=== PATIENT | male | born 1930 | race Caucasian/White ===

== ENCOUNTER 2018-11-25 00:31 | Inpatient (IN) | payer MEDICARE, OTHER ==
[2018-11-25] VITALS (74 sets, daily range): BP systolic 48–139; BP diastolic 27–89
[~2018-11-25] VITALS: Ht 172.7 cm; Wt 76.2 kg
[~2018-11-25 00:31] MED LIST: ASPI-605 PO
--- NOTE | 2018-11-25 00:40 | NUR ---
ABG DONE IMMEDIATELY.
--- NOTE | 2018-11-25 00:45 | NUR ---
pt bibra, for fever, sob, 88% on r/a rr 30 temp 102, placed on er bed 7, immediately started on cpap setting as ordered, seen and eval done by er dr Mccray, orders and tx carried out.
[2018-11-25] MEDS ORDERED: ALBUTEROL FS 2.5 MG/3 ML VIAL.NEB ONE (00:49)
[2018-11-25] MEDS ORDERED: IBUPROFEN 600 MG TABLET PO ONE ×2 (00:52→01:00)
[2018-11-25] MEDS ORDERED: CEFTRIAXONE 1 G VIAL ONE (00:55)
[2018-11-25] MEDS ORDERED: CEFTRIAXONE 1 G in IV D5W 50 ML IV ONE (01:00)
[2018-11-25] MEDS ORDERED: IV NS 0.9% 1,000 ML BAG IV ONE (01:00)
[2018-11-25 01:02] LABS: HEMATOCRIT 37 % (39-51); HEMOGLOBIN 12.3 g/dL (13.5-17.5); LYMPHOCYTES # (AUTO) 0.2 /CMM (0.8-4.8); MEAN CORPUSCULAR HGB CONC 34 g/dl (31.0-36.0); MEAN CORPUSCULAR VOLUME 105 fL (80-96); MONOCYTES # (AUTO) 0.1 /CMM (0.1-1.30); MONOCYTES % (AUTO) 0.8 % (2.0-12.0); NEUTROPHILS # (AUTO) 16.8 /CMM (1.8-8.9); NEUTROPHILS % (AUTO) 98.2 % (43.0-81.0); PLATELET COUNT (AUTO) 144 /CMM (150-450); RED BLOOD CELL COUNT(AUTO) 3.49 MIL/uL (4.5-6.0); WHITE BLOOD COUNT (AUTO) 17.1 K/uL (4.3-11.0)
[2018-11-25 01:04] LABS: ABG OXYGEN SATURATION 96.6 % (92.0-98.5); ABG PO2 95.2 mmHg (75.0-100.0); AaDO2 597.8 mmHg; COHb 0.1 % (0.5-1.5); MetHb 0.4 % (0.0-1.5); O2Hb 96.1 % (94.0-97.0); SITE, ABG Left Radial; VENT MODE, BG cpap
[2018-11-25 01:11] LABS: CALCIUM, SERUM 8.6 mg/dL (8.5-10.1); CARBON DIOXIDE 14 mmol/L (21-32); CHLORIDE 107 mmol/L (98-107); CREATININE 2.7 mg/dL (0.6-1.3); GLUCOSE 172 mg/dL (74-106); POTASSIUM 4.1 mmol/L (3.5-5.1); SODIUM SERUM 142 mmol/L (136-145); UREA NITROGEN, BLOOD 48 mg/dL (7-18)
[2018-11-25 01:17] LABS: ALANINE AMINOTRANSFERASE 41 U/L (12-78); ALBUMIN 2.7 g/dL (3.4-5.0); ALKALINE PHOSPHATASE 379 U/L (46-116); ASPARTATE AMINOTRANSFERASE 49 U/L (15-37); BILIRUBIN,DIRECT 0.2 mg/dL (0.0-0.2); BILIRUBIN,TOTAL 0.5 mg/dL (0.2-1.0); TOTAL PROTEIN, SERUM 6.2 g/dL (6.4-8.2)
--- NOTE | 2018-11-25 01:40 | NUR ---
XR CHEST ORDERED DONE.
[2018-11-25] MEDS ORDERED: ACETAMINOPHEN 325 MG TABLET PO PRN (02:00)
[2018-11-25] MEDS ORDERED: MAGNESIUM HYDROXIDE 30 ML UDC PO PRN (02:00)
[2018-11-25] MEDS ORDERED: MORPHINE SULFATE INJ 2 MG/ML DISP.SYRIN IV PRN (02:00)
[2018-11-25] MEDS ORDERED: AZITHROMYCIN 500 MG in IV D5W 250 ML IV ONE (02:00)
[2018-11-25] MEDS ORDERED: MAG HYDROX/AL HYDROX/SIMETH 30 ML UDC PO PRN (02:00)
[2018-11-25] MEDS ORDERED: ONDANSETRON HCL/PF 4 MG/2 ML VIAL IVP PRN (02:00)
[2018-11-25] MEDS ORDERED: TEMAZEPAM 15 MG CAPSULE PO PRN (02:00)
[2018-11-25] MEDS ORDERED: ALBUTEROL FS 2.5 MG/0.5 ML VIAL.NEB NEB PRN (02:00)
[2018-11-25] MEDS ORDERED: IPRATROPIUM NEB FS 0.5 MG/2.5 ML AMPUL.NEB NEB PRN (02:00)
[2018-11-25] MEDS ORDERED: NITROGLYCERIN 0.4 MG/TAB BOTTLE SL PRN (02:00)
--- NOTE | 2018-11-25 02:00 | NUR ---
CALLED ICU, REPORT GIVEN TO ED CHARGE, PT GOING TO 216, ADMITTING CHERELLE PRECIADO.
[2018-11-25] MEDS ORDERED: AZITHROMYCIN 500 MG VIAL ONE (02:04)
[2018-11-25] MEDS ORDERED: DEXTROSE 50%-WATER 50 ML DISP.SYRIN IV PRN (02:30)
[2018-11-25] MEDS ORDERED: LORAZEPAM INJ 2 MG/ML VIAL IV PRN (02:30)
[2018-11-25] MEDS ORDERED: NOREPINEPHRINE 4 MG/4 ML AMPUL IV ONE (04:10)
[2018-11-25] MEDS: NOREPINEPHRINE 16 MG in IV D5W 500 ML IV PRN ×2 (04:23→16:58)
--- NOTE | 2018-11-25 04:43 | NUR ---
PRODUCTION PATTERN MAKER. ADMISSION. RECEIVED THE PT FROM ER VIA WebMD. SEPSIS. PT AWAKE. ALERT. LETHARGIC. TEMPERATURE 99. C PAP ON. SETTINGS C PAP 10. FIO2 100. SAT 99%. HOB ELEVATED. IV RT WRIST 18G, RT EJ 18G, SALINE LOCK. WILL CONTINUE TO MONITOR VITALS.
--- NOTE | 2018-11-25 04:49 | NUR ---
GROUTMAN. BARBARA PLACED WITH OUT DIFFICULT. BLOOD PRESSURE 55/43. CHERELLE MADE AWARE. LEVOPHED STARTED. WILL CONTINUE TO MONITOR.
[2018-11-25 05:27] LABS: ABG BASE EXCESS -10.4 mmol/L; ABG PCO2 21.2 mmHg (35.0-45.0); ABG PH 7.391 (7.350-7.450); ABG PO2 400.6 mmHg (75.0-100.0); AaDO2 291.2 mmHg; MetHb 0.5 % (0.0-1.5); O2Hb 98.5 % (94.0-97.0); SITE, ABG Right Brachial
--- NOTE | 2018-11-25 06:28 | NUR ---
CENTER RECEPTIONIST. PT IS VERY LETHARGIC. ABG DONE. CHERELLE MADE AWARE RESULT. FIO2 TITRATED DOWN. WILL CONTINUE TO MONITOR
[2018-11-25] MEDS: BLOOD SUGAR DIAGNOSTIC 1 EACH STRIP IN SCH ×4 (07:28→21:38)
[2018-11-25] MEDS: INSULIN REGULAR, HUMAN 100 UNIT/ML 3 ML VIAL SQ PRN ×2 (07:31→12:04)
[2018-11-25] MEDS ORDERED: SITA1TAB6 PO (07:38)
[2018-11-25] MEDS ORDERED: BENA1TAB18 PO (07:38)
[2018-11-25] MEDS ORDERED: PIOG15TA8 PO (07:38)
--- NOTE | 2018-11-25 08:30 | NUR ---
RN NOTES RECEIVED PT ON BED, LETHARGIC , NON VERBAL , MUMBLING , PULLS ON HIS IV LINES AT TIMES ,GEMA. WRIST PROTECTIVE DEVICES ON FOR PT SAFETY ON 2 L O2 N/C , SR ON MONITOR , HR IN 80'S , JIMENEZ TO GRAVITY , NO URINE OUTPUT NOTED AT THIS TIME, ON LEVO AT 20MCG/HR , LEFT WRIST AND R EJ IV SITES CLEAN ,DRY AND INTACT, SR UP X3, CALL LIGHT WITHIN EASY REACH, BED LOCKED AND IN LOWEST POSITION , CONTINUE TO MONITOR .
[2018-11-25] MEDS ORDERED: HYDROCORTISONE SOD SUCCINATE 100 MG/2 ML VIAL IV SCH (09:00)
[2018-11-25] MEDS: IV NS 0.9% 1,000 ML IV PRN ×2 (09:14→20:51)
[2018-11-25] MEDS: ASPIRIN 81 MG TAB.CHEW PO SCH (09:44)
[2018-11-25] MEDS: PANTOPRAZOLE 40 MG VIAL IV SCH (09:44)
--- NOTE | 2018-11-25 10:00 | NUR ---
RN NOTES DR BRITT NOTIFED REGARDING LOW URINE OUT PUT .
--- NOTE | 2018-11-25 10:50 | NUR ---
RN NOTES DCV=[id number] , DR BRITT NOTIFED , OK TO GIVE HEPARIN SQ PER MD ORDER .
[2018-11-25] MEDS: HEPARIN SODIUM, PORCINE 5000 UNITS/1 ML VIAL SQ SCH ×2 (10:56→20:45)
[2018-11-25] MEDS ORDERED: MEROPENEM 1 G in IV NS 0.9% 100 ML IV SCH (11:00)
[2018-11-25] MEDS ORDERED: IV NS 0.9% 1,000 ML IV PRN (11:00)
[2018-11-25] MEDS ORDERED: FEE PK DOSING 1 MIN EA MC ONE (11:19)
[2018-11-25] MEDS ORDERED: FLUDROCORTISONE 0.1 MG TABLET PO SCH (12:00)
[2018-11-25] MEDS ORDERED: VANCOMYCIN 1 GM in IV D5W 250 ML IV ONE (12:00)
[2018-11-25] MEDS: ACETYLCYSTEINE 10% SOLN 400 MG/4 ML VIAL NEB SCH ×3 (12:00→23:34)
--- NOTE | 2018-11-25 12:45 | NUR ---
RN NOTES VANCO IV IS NOT AVAILABLE FROM PHARMACY YET , SPOKEN TO NINOSKA,
[2018-11-25] MEDS: MEROPENEM 1 G in IV NS 0.9% 100 ML IV SCH (13:11)
[2018-11-25] MEDS: Z GUARD REMEDY 2 OZ OINT TP SCH (15:33)
--- NOTE | 2018-11-25 17:46 | NUR ---
RN NOTES DR BRITT NOTIFED REGARDING LOW URINE OUTPUT AND RESPIRATORY RATE ON 30 TO 32/ MIN , ORDER RECEIVED FOR LASIX IV , CONTINUE TO MONITOR
[2018-11-25] MEDS ORDERED: FUROSEMIDE 40 MG/4 ML VIAL IV STA (17:49)
--- NOTE | 2018-11-25 17:50 | NUR ---
PATIENT NOTED MORE LETHARGIC, TACHYPNEIC AT 35/MIN. SPOKE TO FAMILY AT BEDSIDE - AND SON , UPDATED WITH PATIENT CONDITION AND PLAN OF CARE. STAT ABG ORDERED. CODE STATUS VERIFIED-FAMILY WANT FULL CODE AT THIS TIME.
[2018-11-25 17:56] LABS: CREATININE, URINE 282.9 MG/DL (30.0-125.0)
--- NOTE | 2018-11-25 18:00 | NUR ---
RN NOTES DR FORD NOTIFED REGARDING ABG RESULTS , ORDER RECEIVED TO PLACE PT ON AVAPS , CONTINUE TO MONITOR.
--- NOTE | 2018-11-25 18:00 | NUR ---
RN NOTES DR BRITT NOTIFED REGARDING ABG AND U/A RESULTS , ORDER RECEIVED FOR BICARB IV , CONTINUE TO MONITOR.
[2018-11-25 18:13] LABS: APPEARANCE,URINE CLOUDY (CLEAR); BILIRUBIN,URINE 2+ (NEGATIVE); BLOOD, URINE 3+ Ery/uL (NEGATIVE); COLOR,URINE YELLOW (YELLOW); KETONES,URINE 1+ (NEGATIVE); LEUKOCYTE ESTERASE ,URINE 2+ (NEGATIVE); NITRITE, URINE NEGATIVE (NEGATIVE); PROTEIN,URINE 3+ mg/dl (NEGATIVE); UGLUCOSE NEGATIVE (NEGATIVE); UROBILINOGEN,URINE 0.2 EU/dL (0.2)
[2018-11-25 18:15] LABS: ABG BASE EXCESS -10.6 mmol/L; ABG OXYGEN SATURATION 93.1 % (92.0-98.5); ABG PCO2 20.5 mmHg (35.0-45.0); ABG PH 7.392 (7.350-7.450); ABG PO2 68.5 mmHg (75.0-100.0); AaDO2 193.1 mmHg; COHb 0.5 % (0.5-1.5); MetHb 0.4 % (0.0-1.5); O2Hb 92.3 % (94.0-97.0); SITE, ABG Right Radial
[2018-11-25 18:19] LABS: BACTERIA,URINE 4+ /HPF (None Seen); RBC,URINE 21-50 /HPF (0-2); SQUAMOUS EPITHELIAL CELL,UR 0-2 /HPF (None Seen); WBC,URINE 21-50 /HPF (0-3)
--- NOTE | 2018-11-25 18:30 | NUR ---
PATIENT PLACED ON AVAPS MODE VT 500, R 12 60% FOR INCREASING SOB. ALARMS CHECKED + AUDIBLE Addendum: 11/25/18 at 1832 by TRACY MONTERO RT Amended: Links added.
--- NOTE | 2018-11-25 18:40 | NUR ---
DR. FORD MADE AWARE OF ABG RESULTS AND PATIENT IS NOW ON AVAPS TV500.RR 12, 60%. NO FURTHER ORDERS AT THIS TIME. CONTINUE PRESENT SETTINGS.
[2018-11-25] MEDS ORDERED: SODIUM BICARBONATE SYR 50 MEQ/50 ML DISP.SYRIN IV STA (18:51)
[2018-11-25 18:56] LABS: EOSINOPHIL,URINE None Seen
[2018-11-25] MEDS: FAMOTIDINE/PF INJ 20 MG/2 ML VIAL IV SCH (20:42)
[2018-11-25] MEDS: INSULIN GLARGINE, 100 UNIT/ML CARTRIDGE SQ SCH (21:39)
[2018-11-26] VITALS (98 sets, daily range): BP systolic 84–138; BP diastolic 24–110
[2018-11-26] MEDS: MEROPENEM 1 G in IV NS 0.9% 100 ML IV SCH ×2 (00:08→12:18)
[2018-11-26] MEDS ORDERED: CEFTRIAXONE 1 G in IV D5W 50 ML IV SCH (02:00)
[2018-11-26] MEDS ORDERED: AZITHROMYCIN 500 MG in IV D5W 250 ML IV SCH (03:00)
[2018-11-26] MEDS ORDERED: NOREPINEPHRINE 4 MG/4 ML AMPUL IV ONE (04:34)
[2018-11-26] MEDS: NOREPINEPHRINE 16 MG in IV D5W 500 ML IV PRN ×3 (05:01→16:08)
[2018-11-26 05:08] LABS: CALCIUM, SERUM 7.3 mg/dL (8.5-10.1); CARBON DIOXIDE 18 mmol/L (21-32); CHLORIDE 111 mmol/L (98-107); CREATININE 3.9 mg/dL (0.6-1.3); GLUCOSE 129 mg/dL (74-106); MAGNESIUM 1.3 mg/dL (1.8-2.4); PHOSPHORUS 3.1 mg/dL (2.5-4.9); POTASSIUM 3.9 mmol/L (3.5-5.1); SODIUM SERUM 146 mmol/L (136-145); UREA NITROGEN, BLOOD 65 mg/dL (7-18)
[2018-11-26 05:20] LABS: CHOLESTEROL 97 mg/dL (<200); LDL 19 mg/dL (0-99); TRIGLYCERIDES 343 mg/dL (30-150)
[2018-11-26 05:40] LABS: HDL CHOLESTEROL < 10 mg/dL (40-60)
[2018-11-26 05:51] LABS: EOSINOPHILS % (AUTO) 1.1 % (0.0-6.0); HEMATOCRIT 36 % (39-51); HEMOGLOBIN 12.1 g/dL (13.5-17.5); LYMPHOCYTES # (AUTO) 0.4 /CMM (0.8-4.8); LYMPHOCYTES % (AUTO) 1.3 % (20.0-44.0); MEAN CORPUSCULAR HGB CONC 33 g/dl (31.0-36.0); MEAN CORPUSCULAR VOLUME 105 fL (80-96); MONOCYTES # (AUTO) 0.7 /CMM (0.1-1.30); MONOCYTES % (AUTO) 1.9 % (2.0-12.0); NEUTROPHILS # (AUTO) 34.2 /CMM (1.8-8.9); NEUTROPHILS % (AUTO) 95.7 % (43.0-81.0); PLATELET COUNT (AUTO) 54 /CMM (150-450); RED BLOOD CELL COUNT(AUTO) 3.47 MIL/uL (4.5-6.0)
[2018-11-26 06:28] LABS: WHITE BLOOD COUNT (AUTO) 35.7 K/uL (4.3-11.0)
[2018-11-26 06:30] LABS: BAND % (MANUAL) 55 % (0.0-5.0); LYMPHOCYTES % (MANUAL) 1 % (16-48); MONOCYTES % (MANUAL) 2 % (0-11.0); NEUTROPHILS % (MANUAL) 42 (42-76)
[2018-11-26] MEDS: IV NS 0.9% 1,000 ML IV PRN ×2 (06:54→20:11)
--- NOTE | 2018-11-26 07:00 | NUR ---
RN NOTES RECEIVED PT ON BED, ON AVAPS , TOLERATING CURRENT SETTING WELL, O2 SAT 100%, ON TELE SR HR IN 80'S , JIMENEZ DRAINING TO GRAVITY , WITH SMALL AMOUNT OF URINE , LEVO AT 20 MCG/MIN AND NS AT 100CC/HR RUNNING VIA R UPPER ARM PICC LINE, IV SITE CLEAN, DRY AND INTACT, SR UP x3, CALL LIGHT WITHIN EASY REACH, BED LOCKED AND IN LOWEST POSITION , CONTINUE TO MONITOR .
--- NOTE | 2018-11-26 07:15 | NUR ---
CLIENT SUPPORT MANAGER NOTE PT REMAINED STABLE DURING SHIFT. NOTIFIED DR BRITT WBC 35.7 AND PLATELETS 54 WITH ORDERS TO HOLD HEPARIN AND CONTINUE ALL OTHER ORDERS, ORDERS NOTED AND CARRIED OUT. WILL ENDORSE TO NEXT SHIFT FOR CONTINUITY OF CARE.
[2018-11-26] MEDS: ACETYLCYSTEINE 10% SOLN 400 MG/4 ML VIAL NEB SCH ×3 (07:18→23:18)
[2018-11-26] MEDS: BLOOD SUGAR DIAGNOSTIC 1 EACH STRIP IN SCH ×4 (07:51→22:25)
--- NOTE | 2018-11-26 08:00 | NUR ---
PATIENT WAS REMOVED FROM BIPAP AND PLACED ON 3L N/C
--- NOTE | 2018-11-26 08:05 | NUR ---
RN NOTES DR BRITT AT THE BEDSIDE, ORDER RECEIVED TO TITRATED LEVO TO KEEP SBP >100 .
[2018-11-26 08:06] LABS: ABG BASE EXCESS -7.8 mmol/L; ABG OXYGEN SATURATION 98.5 % (92.0-98.5); ABG PCO2 27.3 mmHg (35.0-45.0); ABG PH 7.382 (7.350-7.450); ABG PO2 192.6 mmHg (75.0-100.0); AaDO2 205.2 mmHg; COHb 0.3 % (0.5-1.5); MetHb 0.5 % (0.0-1.5); O2Hb 97.7 % (94.0-97.0); PEEP,BG 5 cm H2O; SITE, ABG Right Radial; VENT MODE, BG AVAPS; VT, ABG 500 mL
--- NOTE | 2018-11-26 08:10 | NUR ---
RN NOTES DR FORD NOTIFED REGARDING ABG RESULTS.
--- NOTE | 2018-11-26 08:15 | NUR ---
WOUND CARE CONSULT: PT UNSTABLE TO BE TURNED FOR SKIN ASSESSMENT AT THIS TIME. DISCUSSED SKIN PROTECTION WITH NURSING STAFF. WILL SEE PT PT CONDITION PERMITS.
[2018-11-26] MEDS: FAMOTIDINE/PF INJ 20 MG/2 ML VIAL IV SCH ×2 (08:16→20:10)
[2018-11-26] MEDS: PANTOPRAZOLE 40 MG VIAL IV SCH (08:16)
[2018-11-26] MEDS: Z GUARD REMEDY 2 OZ OINT TP SCH ×2 (08:16→20:12)
[2018-11-26] MEDS: ASPIRIN 81 MG TAB.CHEW PO SCH (08:17)
[2018-11-26 09:30] LABS: ABG BASE EXCESS -6.7 mmol/L; ABG OXYGEN SATURATION 94.8 % (92.0-98.5); ABG PCO2 26.7 mmHg (35.0-45.0); ABG PH 7.411 (7.350-7.450); AaDO2 182.5 mmHg; COHb 0.3 % (0.5-1.5); MetHb 0.6 % (0.0-1.5); O2Hb 93.9 % (94.0-97.0); SITE, ABG Right Radial
[2018-11-26] MEDS ORDERED: PHENYLEPHRINE 80 MG in IV NS 0.9% 250 ML IV PRN (10:00)
[2018-11-26] MEDS: Magnesium 1GM/D5W 100ML PREMIX 100 ML IV SCH ×2 (10:56→12:17)
[2018-11-26] MEDS: INSULIN REGULAR, HUMAN 100 UNIT/ML 3 ML VIAL SQ PRN ×2 (11:45→17:14)
--- NOTE | 2018-11-26 12:02 | NUR ---
WOUND CARE CONSULT: PT PRESENTS WITH INCONTINENCE AND IMMOBILITY. CURRENT ESTRELLITA SCORE IS 12. PT NOTED TO HAVE RT BUTTOCK INCONTINENCE ASSOCIATED SKIN DAMAGE, PRESENT ON ADMISSION. RECOMMENDATIONS MADE FOR SKIN PROTECTION AND CARE. DISCUSSED WITH NURSING STAFF. WILL SEE PRN. FIRST STEP LOW AIRLOSS MATTRESS BEING PLACED. MD IN AGREEMENT WITH PLAN OF CARE. Addendum: 11/26/18 at 1204 by GISSELL VALERO WNDNU Amended: Links added.
--- NOTE | 2018-11-26 13:00 | NUR ---
RN NOTES PT PLACED ON [facility] MATTERS , PER ORDER , SOFT BM X1 NOTED .
--- NOTE | 2018-11-26 18:00 | NUR ---
RN NOTES PT STABLE , ON LEVO AT 26MCG/MIN AT THIS TIME ,NO SIGNIFICANT CHANGES NOTED ON THIS SHIFT , WILL ENDOSE TO INSEAM LEVELER NURSE FOR CONTINUITY OF CARE .
[2018-11-26] MEDS: PIPERACILLIN /TAZOBACTAM 2.25 G in IV D5W 50 ML IV SCH ×2 (18:09→23:55)
[2018-11-26] MEDS: INSULIN GLARGINE, 100 UNIT/ML CARTRIDGE SQ SCH (22:39)
[2018-11-27] VITALS (86 sets, daily range): BP systolic 81–159; BP diastolic 42–104
[2018-11-27] MEDS ORDERED: VANCOMYCIN 0.75 GM in IV D5W 250 ML IV SCH (01:00)
[2018-11-27 04:51] LABS: BASOPHILS % (AUTO) 0.1 % (0.0-2.0); EOSINOPHILS % (AUTO) 0.1 % (0.0-6.0); HEMATOCRIT 30 % (39-51); HEMOGLOBIN 10.1 g/dL (13.5-17.5); LYMPHOCYTES # (AUTO) 0.3 /CMM (0.8-4.8); MEAN CORPUSCULAR HGB CONC 33 g/dl (31.0-36.0); MEAN CORPUSCULAR VOLUME 105 fL (80-96); MONOCYTES # (AUTO) 0.3 /CMM (0.1-1.30); MONOCYTES % (AUTO) 0.7 % (2.0-12.0); NEUTROPHILS # (AUTO) 35.3 /CMM (1.8-8.9); NEUTROPHILS % (AUTO) 98.1 % (43.0-81.0); RED BLOOD CELL COUNT(AUTO) 2.87 MIL/uL (4.5-6.0)
[2018-11-27 04:59] LABS: CALCIUM, SERUM 7.1 mg/dL (8.5-10.1); CARBON DIOXIDE 21 mmol/L (21-32); CHLORIDE 107 mmol/L (98-107); CREATININE 3.3 mg/dL (0.6-1.3); GLUCOSE 151 mg/dL (74-106); POTASSIUM 3.5 mmol/L (3.5-5.1); SODIUM SERUM 140 mmol/L (136-145); UREA NITROGEN, BLOOD 71 mg/dL (7-18)
[2018-11-27] MEDS: NOREPINEPHRINE 16 MG in IV D5W 500 ML IV PRN (05:02)
[2018-11-27 05:04] LABS: ALANINE AMINOTRANSFERASE 69 U/L (12-78); ALBUMIN 1.8 g/dL (3.4-5.0); ALKALINE PHOSPHATASE 231 U/L (46-116); ASPARTATE AMINOTRANSFERASE 64 U/L (15-37); BILIRUBIN,TOTAL 0.6 mg/dL (0.2-1.0); MAGNESIUM 1.8 mg/dL (1.8-2.4); PHOSPHORUS 2.3 mg/dL (2.5-4.9); TOTAL PROTEIN, SERUM 5.3 g/dL (6.4-8.2)
[2018-11-27 05:10] LABS: PLATELET COUNT (AUTO) 38 /CMM (150-450)
[2018-11-27] MEDS: PIPERACILLIN /TAZOBACTAM 2.25 G in IV D5W 50 ML IV SCH ×4 (05:29→23:57)
[2018-11-27 05:49] LABS: BAND % (MANUAL) 23 % (0.0-5.0); MONOCYTES % (MANUAL) 1 % (0-11.0); NEUTROPHILS % (MANUAL) 76 (42-76)
--- NOTE | 2018-11-27 07:05 | NUR ---
RN NOTES RECEIVED PT ON BED, ALERT/ CONFUSED, ON 4 L O2 N/C RESPIRATION EVEN AND UNLABORED, NO SOB NOTED, ON TELE SR HR IN 80'S , JIMENEZ INTACT, LEVO AT 16 MCG/MIN AND NS AT 100CC/HR RUNNING VIA R UPPER ARM PICC LINE, IV SITE CLEAN, DRY AND INTACT, SR UP x3, CALL LIGHT WITHIN EASY REACH, BED LOCKED AND IN LOWEST POSITION , CONTINUE TO MONITOR .
[2018-11-27] MEDS: ASPIRIN 81 MG TAB.CHEW PO SCH (08:17)
[2018-11-27] MEDS: Z GUARD REMEDY 2 OZ OINT TP SCH ×2 (08:18→21:33)
[2018-11-27] MEDS: PANTOPRAZOLE 40 MG TABLET.DR PO SCH (08:18)
[2018-11-27] MEDS: BLOOD SUGAR DIAGNOSTIC 1 EACH STRIP IN SCH ×4 (08:23→21:36)
[2018-11-27] MEDS: ACETYLCYSTEINE 10% SOLN 400 MG/4 ML VIAL NEB SCH (08:25)
[2018-11-27] MEDS: IV NS 0.9% 1,000 ML IV PRN (09:25)
--- NOTE | 2018-11-27 12:00 | NUR ---
RN NOTES PT COUGHS WHEN EATING , DR BRITT NOTIFED , NEW ORDER RECEIVED FOR SWALLOWING EVAL .
[2018-11-27] MEDS: INSULIN REGULAR, HUMAN 100 UNIT/ML 3 ML VIAL SQ PRN (12:11)
--- NOTE | 2018-11-27 13:00 | NUR ---
RN NOTES PT KEPT NPO PER MD AND SPEECH THERAPIST.
[2018-11-27] MEDS: LACTOBACILLUS RHAMNOSUS GG 1 EACH CAP.SPRINK PO SCH (16:08)
--- NOTE | 2018-11-27 18:00 | NUR ---
RN NOTES SUPPORTIVE FAMILY AT THE BEDSIDE, LEVO AT 12 MCG/MIN AT THIS TIME TO KEEP SBP>[address] BRITT ORDER , NO SIGNIFICANT CHANGES NOTED ON THIS SHIFT , WILL ENDORSE TO AUTOMATION DESIGN ENGINEER NURSE FOR CONTINUITY OF CARE.
--- NOTE | 2018-11-27 20:00 | NUR ---
CHURCH HISTORY PROFESSOR - NOTES - RECEIVED PT ON BED, 4L NC TOLERATING WELL, ON TELE SR HR IN 80'S , JIMENEZ DRAINING TO GRAVITY , WITH SMALL AMOUNT OF URINE , LEVO AT 10 MCG/MIN AND NS AT 75 ML/HR RUNNING VIA R UPPER ARM PICC LINE, IV SITE CLEAN, DRY AND INTACT, SR UP x3, CALL LIGHT WITHIN EASY REACH, BED LOCKED AND IN LOWEST POSITION , CONTINUE TO MONITOR .
[2018-11-27] MEDS: INSULIN GLARGINE, 100 UNIT/ML CARTRIDGE SQ SCH (21:42)
[2018-11-28] VITALS (53 sets, daily range): BP systolic 84–148; BP diastolic 45–75
[2018-11-28 04:13] LABS: BASOPHILS # (AUTO) 0.1 /CMM (0.0-0.2); BASOPHILS % (AUTO) 0.2 % (0.0-2.0); EOSINOPHILS % (AUTO) 6.7 % (0.0-6.0); HEMATOCRIT 32 % (39-51); HEMOGLOBIN 10.8 g/dL (13.5-17.5); LYMPHOCYTES # (AUTO) 0.6 /CMM (0.8-4.8); LYMPHOCYTES % (AUTO) 1.5 % (20.0-44.0); MEAN CORPUSCULAR HGB CONC 34 g/dl (31.0-36.0); MEAN CORPUSCULAR VOLUME 104 fL (80-96); MONOCYTES # (AUTO) 0.1 /CMM (0.1-1.30); MONOCYTES % (AUTO) 0.3 % (2.0-12.0); NEUTROPHILS # (AUTO) 35.2 /CMM (1.8-8.9); NEUTROPHILS % (AUTO) 91.3 % (43.0-81.0); RED BLOOD CELL COUNT(AUTO) 3.07 MIL/uL (4.5-6.0)
[2018-11-28 04:23] LABS: CALCIUM, SERUM 7.5 mg/dL (8.5-10.1); CARBON DIOXIDE 21 mmol/L (21-32); CHLORIDE 108 mmol/L (98-107); CREATININE 2.7 mg/dL (0.6-1.3); GLUCOSE 117 mg/dL (74-106); POTASSIUM 3.4 mmol/L (3.5-5.1); SODIUM SERUM 142 mmol/L (136-145); UREA NITROGEN, BLOOD 79 mg/dL (7-18)
[2018-11-28 04:42] LABS: WHITE BLOOD COUNT (AUTO) 38.6 K/uL (4.3-11.0)
[2018-11-28 04:43] LABS: PLATELET COUNT (AUTO) 29 /CMM (150-450)
[2018-11-28] MEDS: PIPERACILLIN /TAZOBACTAM 2.25 G in IV D5W 50 ML IV SCH (05:12)
[2018-11-28 05:57] LABS: BAND % (MANUAL) 3 % (0.0-5.0); LYMPHOCYTES % (MANUAL) 3 % (16-48); MONOCYTES % (MANUAL) 1 % (0-11.0); MYELOCYTES % 1 % (0-0); NEUTROPHILS % (MANUAL) 92 (42-76)
[2018-11-28 07:21] LABS: BILIRUBIN,DIRECT 0.4 mg/dL (0.0-0.2)
[2018-11-28] MEDS: PANTOPRAZOLE 40 MG TABLET.DR PO SCH (08:25)
[2018-11-28] MEDS: BLOOD SUGAR DIAGNOSTIC 1 EACH STRIP IN SCH ×4 (08:25→22:06)
[2018-11-28] MEDS: PIOGLITAZONE HCL 15 MG TABLET PO SCH (08:25)
[2018-11-28] MEDS: LACTOBACILLUS RHAMNOSUS GG 1 EACH CAP.SPRINK PO SCH ×2 (08:25→17:11)
[2018-11-28] MEDS: Z GUARD REMEDY 2 OZ OINT TP SCH ×2 (08:25→21:15)
[2018-11-28] MEDS: ASPIRIN 81 MG TAB.CHEW PO SCH (08:25)
[2018-11-28] MEDS ORDERED: ASPIRIN EC 81 MG TABLET.DR PO SCH (09:00)
[2018-11-28] MEDS ORDERED: FUROSEMIDE 20 MG/2 ML VIAL IV ONE (09:30)
[2018-11-28] MEDS ORDERED: POTASSIUM CHLORIDE 10 MEQ/50 ML PREMIXED IVPB FOR PERIPHERAL LINE IV ONE (09:30)
[2018-11-28] MEDS: IV D5/ 0.9% NACL 1,000 ML IV PRN (09:47)
[2018-11-28] MEDS: CEFTRIAXONE 2 G in IV D5W 100 ML IV SCH (09:51)
[2018-11-28] MEDS: POTASSIUM CL. PREMIX PERIPHER. 50 ML IV SCH ×2 (09:58→11:11)
--- NOTE | 2018-11-28 10:09 | NUR ---
RN NOTE 0715: Received patient resting well, responds to verbal stimuli, Swedish speaking. With [place] PICC intact. On IVF infusing as ordered. With Mishra cath intact, noted with wandy colored urine drained to BSD. On 4 LPM of O2 via NC. SBP remained >100. Tolerated without Levophed for now, will continue to monitor. SR 60's on the monitor. 0800: S/E by Dr. Garcia, CVP reading 12, with order to DC IVF. Glucose 101. 0900: S/E by Dr. Thompson, no new order at this time. 0915: S/E by Dr. Courtney, with order to restart on IVF D5NS @ 50 for NPO, Lasix 20 x1, CT abd and head. 1000: and son at bedside, updated re: patient's condition.
[2018-11-28] MEDS: INSULIN REGULAR, HUMAN 100 UNIT/ML 3 ML VIAL SQ PRN ×2 (17:18→22:15)
[2018-11-28] MEDS: ENSURE ENLIVE CHOC 237 ML CAN PO SCH (18:48)
--- NOTE | 2018-11-28 19:30 | NUR ---
ROUTE DRIVER SALESPERSON: RECEIVED PT ON 4L 02 VIA NC WT CONFUSION. NO ACUTE DISTRESS, NO EVIDENCE OF DISCOMFORT. ABLE TO FOLLOW SIMPLE COMMANDS AT TIMES. SR ON VENEER JOINTER HELPER. AFEBRILE. [place] PICC RUNNING D5NS AT 50ML/HR WT NO S/S OF COMPLICATIONS. F/C PATENT AND INTACT DRAINING YELLOW URINE TO GRAVITY. BILAT. SOFT WRIST RESTRAINTS IN PLACE FOR EPISODES OF TRYING TO PULL TUBINGS. SKIN AND CIRCULATION WNL. HOB AT 45 DEGREES. SAFETY AND ASPIRATION PRECAUTIONS NOTED. WILL CONTINUE TO MONITOR.
[2018-11-28] MEDS: INSULIN GLARGINE, 100 UNIT/ML CARTRIDGE SQ SCH (22:11)
[2018-11-29] VITALS (24 sets, daily range): BP systolic 107–149; BP diastolic 55–76
[2018-11-29 04:48] LABS: BASOPHILS # (AUTO) 0.1 /CMM (0.0-0.2); BASOPHILS % (AUTO) 0.4 % (0.0-2.0); EOSINOPHILS % (AUTO) 0.2 % (0.0-6.0); HEMATOCRIT 34 % (39-51); HEMOGLOBIN 11.2 g/dL (13.5-17.5); LYMPHOCYTES # (AUTO) 0.7 /CMM (0.8-4.8); LYMPHOCYTES % (AUTO) 2.2 % (20.0-44.0); MEAN CORPUSCULAR HGB CONC 34 g/dl (31.0-36.0); MEAN CORPUSCULAR VOLUME 103 fL (80-96); MONOCYTES # (AUTO) 0.2 /CMM (0.1-1.30); MONOCYTES % (AUTO) 0.5 % (2.0-12.0); NEUTROPHILS % (AUTO) 96.7 % (43.0-81.0); RED BLOOD CELL COUNT(AUTO) 3.24 MIL/uL (4.5-6.0)
[2018-11-29 05:06] LABS: ALANINE AMINOTRANSFERASE 81 U/L (12-78); ALBUMIN 1.7 g/dL (3.4-5.0); ALKALINE PHOSPHATASE 657 U/L (46-116); ASPARTATE AMINOTRANSFERASE 61 U/L (15-37); BILIRUBIN,TOTAL 0.8 mg/dL (0.2-1.0); CALCIUM, SERUM 7.7 mg/dL (8.5-10.1); CARBON DIOXIDE 22 mmol/L (21-32); CHLORIDE 112 mmol/L (98-107); CREATININE 2.5 mg/dL (0.6-1.3); GLUCOSE 147 mg/dL (74-106); MAGNESIUM 1.9 mg/dL (1.8-2.4); POTASSIUM 3.3 mmol/L (3.5-5.1); SODIUM SERUM 145 mmol/L (136-145); TOTAL PROTEIN, SERUM 5.3 g/dL (6.4-8.2)
[2018-11-29 05:32] LABS: UREA NITROGEN, BLOOD 81 mg/dL (7-18)
[2018-11-29] MEDS: IV D5/ 0.9% NACL 1,000 ML IV PRN (05:32)
[2018-11-29 06:15] LABS: PLATELET COUNT (AUTO) 20 /CMM (150-450)
[2018-11-29 06:26] LABS: LYMPHOCYTES % (MANUAL) 3 % (16-48); MONOCYTES % (MANUAL) 2 % (0-11.0); NEUTROPHILS % (MANUAL) 95 (42-76)
--- NOTE | 2018-11-29 06:50 | NUR ---
SHAPING MACHINE OPERATOR: RECEIVED BUN=81 FROM 79, LACTIC =2.4 FROM 2.3, WBC=31 FROM 38.6 AND PLATELET=20 FROM 29. NO SIGNIFICANT ANNABEL THROUGHOUT THE SHIFT. STILL OFF VASOPRESSOR. NO ACTIVE BLEEDING. NOTIFIED DR. BRITT AND SAID NO NEW ORDER FOR NOW. ALL NEEDS MET. WILL ENDORSE TO DAY SHIFT FOR CONTINUITY OF CARE.
[2018-11-29] MEDS: ENSURE ENLIVE CHOC 237 ML CAN PO SCH ×3 (08:00→17:03)
[2018-11-29] MEDS: PANTOPRAZOLE 40 MG TABLET.DR PO SCH (08:44)
[2018-11-29] MEDS: ASPIRIN 81 MG TAB.CHEW PO SCH (08:44)
[2018-11-29] MEDS: PIOGLITAZONE HCL 15 MG TABLET PO SCH (08:44)
[2018-11-29] MEDS: LACTOBACILLUS RHAMNOSUS GG 1 EACH CAP.SPRINK PO SCH ×2 (08:44→17:02)
[2018-11-29] MEDS: Z GUARD REMEDY 2 OZ OINT TP SCH ×2 (08:45→21:27)
[2018-11-29] MEDS: BLOOD SUGAR DIAGNOSTIC 1 EACH STRIP IN SCH ×4 (08:49→22:22)
--- NOTE | 2018-11-29 08:53 | NUR ---
RATTLESNAKE FARMER: RECEIVED PT ON 4L 02 VIA NC WT CONFUSION.SLEEPING COMFORTABLY BUT EASILY TO AROSE NO ACUTE DISTRESS, NO EVIDENCE OF DISCOMFORT. ABLE TO FOLLOW SIMPLE COMMANDS AT TIMES. SR ON PHILOSOPHY AND RELIGION INSTRUCTOR. AFEBRILE. [place] PICC RUNNING D5NS AT 50ML/HR WT NO S/S OF COMPLICATIONS. F/C PATENT AND INTACT DRAINING YELLOW URINE TO GRAVITY. BILAT. SOFT WRIST RESTRAINTS IN PLACE FOR EPISODES OF TRYING TO PULL TUBINGS. SKIN AND CIRCULATION WNL. HOB AT 45 DEGREES. SAFETY AND ASPIRATION PRECAUTIONS NOTED. WILL CONTINUE TO MONITOR.ON CVP LINE ORDERED SEEN BY DR BRITT AWARE THAT PATINT HAS BLISTERS ON BOTH LIPS ALSO AWARE BUN 81FED BY STUFF ATE 25% OK TO STOP CVP LINE
[2018-11-29] MEDS: CEFTRIAXONE 2 G in IV D5W 100 ML IV SCH (09:03)
--- NOTE | 2018-11-29 09:38 | NUR ---
MINING MANAGER NOTE SEEN BY DR FORD AWARE THAT BUN 81 LACTIC ACID 2.4 WBC 31 STATED THAT WILL CHECK IT OUT
[2018-11-29 10:24] LABS: D-DIMER 24.56 mg/L(FEU (0.17-0.50)
--- NOTE | 2018-11-29 11:00 | NUR ---
ODD JOBS DAY WORKER NOTE CALLED TO DR SARMIENTO ABOUT TROP TODAY IS 0.140 CKMB 104.8 ,WILL AWAIT FOR RETURN CALL Addendum: 11/29/18 at 1600 by MARINA HALL RN WRONG CHARTING
--- NOTE | 2018-11-29 11:28 | NUR ---
TITLE CLOSER NOTE PER DR LROENZA SIMENTAL TO D\C CVP MONITORING, SEEN BY ST RECOMMENDED NPO FOR NOW
[2018-11-29] MEDS ORDERED: POTASSIUM CHLORIDE 20 MEQ POWDER PACKET PO SCH (11:30)
[2018-11-29] MEDS: INSULIN REGULAR, HUMAN 100 UNIT/ML 3 ML VIAL SQ PRN ×3 (12:45→22:23)
--- NOTE | 2018-11-29 13:30 | NUR ---
SLACK LINE YARDER NOTE ON FULL LIQUID DIET . ON ASPIRATION PRECAUTION, STILL DIFFICULTY TO SWALLOW . ABLE TO EAT LIQUID DIET WITH THICKENER VERY SMALL AMT, WILL CONT TO MONITOR CLOSELY FAMILY AT BEDSIDE
--- NOTE | 2018-11-29 13:30 | NUR ---
school curriculum developer note melonie bloom at bedside notified that patient c\o rt hip pain, stated that will order rt leg x ray and Doppler us r\o dvt Addendum: 11/29/18 at 1537 by MARINA HALL RN WRONG CHARTING
--- NOTE | 2018-11-29 13:59 | NUR ---
NOVELTY TWISTER TENDER NOTE XRAY RT LEG DONE ORDERED Addendum: 11/29/18 at 1536 by MARINA HALL RN WRONG CHARTING
--- NOTE | 2018-11-29 15:00 | NUR ---
SPORT SHOE SPIKE ASSEMBLER NOTE UNABLE TO REMOVE SOFT RESTRAIN, STILL TRYING TO REMOVE ALL LINES .WILL MONITOR
--- NOTE | 2018-11-29 15:56 | NUR ---
BAGGAGE CLERK NOTE DR FORD AT BEDSIDE WITH ORDER RENAL US , SON AT BEDSIDE ,WILL F\U
--- NOTE | 2018-11-29 17:18 | NUR ---
RAILROAD MAINTENANCE CLERK NOTE RENAL US DOING NOW , WILL F\U
--- NOTE | 2018-11-29 18:20 | NUR ---
CLERICAL ASSOCIATE NOTE FAMILY AT BEDSIDE, ALL NEEDS ATTENDED , ON 4L NC, NO SOB NOTED, SAT 95% , WITH JIMENEZ CATH TO GRAVITY WITH YELLOW COLOR URINE ,ABLE TO EAT DINNER WITH MAX ASSISTANCE,ATE 5% ,STILL AT HIGH RISK FOR ASPIRATION ,ON ASPIRATION PRECAUTION OBSERVED, WILL CONT TO MONITOR CLOSELY
[2018-11-29] MEDS: INSULIN GLARGINE, 100 UNIT/ML CARTRIDGE SQ SCH (22:24)
[2018-11-30] VITALS (60 sets, daily range): BP systolic 65–157; BP diastolic 28–82
[2018-11-30] MEDS: IV D5/ 0.9% NACL 1,000 ML IV PRN (02:50)
[2018-11-30 04:45] LABS: BASOPHILS # (AUTO) 0.1 /CMM (0.0-0.2); BASOPHILS % (AUTO) 0.3 % (0.0-2.0); EOSINOPHILS % (AUTO) 0.3 % (0.0-6.0); HEMATOCRIT 32 % (39-51); HEMOGLOBIN 10.8 g/dL (13.5-17.5); LYMPHOCYTES # (AUTO) 0.9 /CMM (0.8-4.8); LYMPHOCYTES % (AUTO) 2.8 % (20.0-44.0); MEAN CORPUSCULAR HGB CONC 34 g/dl (31.0-36.0); MEAN CORPUSCULAR VOLUME 103 fL (80-96); MONOCYTES # (AUTO) 0.2 /CMM (0.1-1.30); MONOCYTES % (AUTO) 0.6 % (2.0-12.0); NEUTROPHILS # (AUTO) 29.5 /CMM (1.8-8.9); RED BLOOD CELL COUNT(AUTO) 3.06 MIL/uL (4.5-6.0)
[2018-11-30 05:07] LABS: ALANINE AMINOTRANSFERASE 62 U/L (12-78); ALBUMIN 1.8 g/dL (3.4-5.0); ALKALINE PHOSPHATASE 687 U/L (46-116); ASPARTATE AMINOTRANSFERASE 38 U/L (15-37); BILIRUBIN,TOTAL 0.6 mg/dL (0.2-1.0); CARBON DIOXIDE 21 mmol/L (21-32); CHLORIDE 115 mmol/L (98-107); CREATININE 2.1 mg/dL (0.6-1.3); GLUCOSE 164 mg/dL (74-106); MAGNESIUM 1.9 mg/dL (1.8-2.4); PHOSPHORUS 3.6 mg/dL (2.5-4.9); POTASSIUM 3.2 mmol/L (3.5-5.1); SODIUM SERUM 147 mmol/L (136-145); TOTAL PROTEIN, SERUM 5.4 g/dL (6.4-8.2); UREA NITROGEN, BLOOD 75 mg/dL (7-18)
[2018-11-30 05:16] LABS: PLATELET COUNT (AUTO) 35 /CMM (150-450); WHITE BLOOD COUNT (AUTO) 30.7 K/uL (4.3-11.0)
[2018-11-30 05:33] LABS: BAND % (MANUAL) 3 % (0.0-5.0); LYMPHOCYTES % (MANUAL) 1 % (16-48); NEUTROPHILS % (MANUAL) 94 (42-76)
[2018-11-30 05:34] LABS: MONOCYTES % (MANUAL) 2 % (0-11.0)
--- NOTE | 2018-11-30 06:35 | NUR ---
PT REMAINS IN NO ACUTE DISTRESS IN BED. PT DID NOT HAVE ANY SIGNIFICANT CHANGE IN CONDITION DURING SHIFT. ALL NEEDS MET, ALL ORDERS CARRIED OUT. WILL ENDORSE CARE TO AM RN FOR CONTINUITY OF CARE.
--- NOTE | 2018-11-30 07:45 | NUR ---
TRAILER BODY ASSEMBLER: pt.is drowsy, can open eyes for seconds by touch, eyes contact+, unable to follow commands, weak, Ox1, no grimacing, SR, SBP over 100, O2sat. 91-93% now on 4L n/c, no SOB, no laboring, off of Bipap since 11/28 by report, had strong coughing with swallow thick liquid diet/aspiration risk/swallow eval order placed in, IVF: D5NS@50 ml/h, K+ 3.2/will s/w
--- NOTE | 2018-11-30 07:50 | NUR ---
DEGREASING SOLUTION RECLAIMER: pt.is on wrists restraints, perinephric abscess neg., is aware re lips vesicular, blisters rash, reevaluated notes: pt.was not on Bipap over night
[2018-11-30] MEDS: ENSURE ENLIVE CHOC 237 ML CAN PO SCH ×3 (08:00→17:00)
--- NOTE | 2018-11-30 08:15 | NUR ---
RETAIL HELPER: pt.is lethargic now, reactive by touch, can open eyes for seconds, O2sat. 80-90%, no SOB, SR, SBP over 100, was placed on NRBM by RT 10 mins ago, is in room, updated, ordered: monitoring, resume Bipap, RT follows with ABG order
--- NOTE | 2018-11-30 08:20 | NUR ---
NOTEREADER: warming pt with blankets
[2018-11-30] MEDS: INSULIN REGULAR, HUMAN 100 UNIT/ML 3 ML VIAL SQ PRN ×3 (08:22→17:46)
[2018-11-30] MEDS: BLOOD SUGAR DIAGNOSTIC 1 EACH STRIP IN SCH ×4 (08:23→22:00)
[2018-11-30] MEDS: Z GUARD REMEDY 2 OZ OINT TP SCH ×2 (08:26→20:58)
[2018-11-30] MEDS: PANTOPRAZOLE 40 MG TABLET.DR PO SCH (09:00)
[2018-11-30] MEDS: LACTOBACILLUS RHAMNOSUS GG 1 EACH CAP.SPRINK PO SCH ×2 (09:00→17:00)
[2018-11-30] MEDS: ASPIRIN 81 MG TAB.CHEW PO SCH (09:00)
[2018-11-30] MEDS: PIOGLITAZONE HCL 15 MG TABLET PO SCH (09:00)
--- NOTE | 2018-11-30 09:15 | NUR ---
FOOD CHECKER: updated with pt.current condition, neuro status, VS, respiratory status/Bipap now, I/O, IVF, K+3.2/ordered 20 meq K+ IV
--- NOTE | 2018-11-30 09:21 | NUR ---
PT REC'D ON BIPAP. TRIED OFF BIPAP AROUND 7AM. PT CONT'D TO GO APNEIC AND DESATURATE. PLACED BACK ON BIPAP. LOWERED FIO2 DOWN TO 30%. PT TOLERATING BIPAP WELL. Addendum: 11/30/18 at 0923 by PABLITO PINEDO RT Amended: Links added.
[2018-11-30] MEDS: POTASSIUM CL. PREMIX PERIPHER. 50 ML IV SCH ×4 (10:11→14:50)
[2018-11-30] MEDS: CEFTRIAXONE 2 G in IV D5W 100 ML IV SCH (10:11)
--- NOTE | 2018-11-30 10:31 | NUR ---
MATERIAL HANDLING TECHNICIAN: spoke with ST to get current info, ST recommended start NPO yesterday, NGT placement candidate?, will speak with MD, pt is getting IVF D2NS
--- NOTE | 2018-11-30 11:30 | NUR ---
SALAD CHEF: NPO ordered by ST state, DT updated
--- NOTE | 2018-11-30 12:10 | NUR ---
SIDEWALK INSPECTOR: pt.is reactive by touch, can open eyes for seconds with eyes contact very weak, more reactive, O2sat. over 96%, T 96.5, warmer machine/blanket applied, pt. is in room/notified re pt.condition, VS, NPO, I/O, IVF, orders, POC, spoke with pt.son/got phone #
[2018-11-30] MEDS ORDERED: POTASSIUM CHLORIDE 20 MEQ TAB.PRT.SR PO SCH (13:00)
--- NOTE | 2018-11-30 13:30 | NUR ---
SHAPING MACHINE OPERATOR: updated with pt.current condition, spoke with RT and updated with morning desaturation episode/Bipap by RT, ordered ABG
--- NOTE | 2018-11-30 13:45 | NUR ---
CHALKER SOLES: ABG: pH 7.30/45/80/22, updated by RT
[2018-11-30 13:47] LABS: ABG BASE EXCESS -4.3 mmol/L; ABG OXYGEN SATURATION 93.7 % (92.0-98.5); ABG PCO2 45.1 mmHg (35.0-45.0); ABG PH 7.306 (7.350-7.450); ABG PO2 80.5 mmHg (75.0-100.0); AaDO2 80.4 mmHg; COHb 0.8 % (0.5-1.5); MetHb 0.4 % (0.0-1.5); O2Hb 92.6 % (94.0-97.0); SITE, ABG Right Radial; VENT MODE, BG BIPAP: AVAPS MODE; VT, ABG 500 mL
--- NOTE | 2018-11-30 15:30 | NUR ---
GUN STOCK CHECKER: spoke with pt., son with detailed explanation
--- NOTE | 2018-11-30 17:14 | NUR ---
HEALTH OUTCOMES LIAISON: pt.is lethargic, able to open eyes by touch with short eyes contact, weak, unable to follow commands, no grimacing, on wrists restraints for self-extubation prevention, had episode to touch ETT when restrains were off, SR, SBP is over 100, O2sat. over 95% on Bipap, no SOB, no acute bleeding, T is going up with warm measures, PM/skin/wound care done, pt.family is in room/updated with all above
--- NOTE | 2018-11-30 19:30 | NUR ---
EXCHANGE ADMINISTRATOR: RECEIVED PT ON BIPAP WT AVAPS MODE SETTING ORDERED. NO ACUTE DISTRESS, WITHDRAWS TO PAIN STIMULI AND OFF RESTRAINTS. SR ON RATE INSERTER. CONTINUE ON FRANK HUGGER FOR LOW TEMP. [place] PICC RUNNING D5NS AT 50ML/HR WT NO S/S OF COMPLICATIONS. F/C PATENT AND INTACT DRAINING SMALL AMT. OF [place] COLORED URINE TO GRAVITY. HOB AT 35 DEGREES. WILL CONTINUE TO MONITOR.
--- NOTE | 2018-11-30 20:10 | NUR ---
CADDY/CADDIE SUPERVISOR: PT NOTED WT DECREASED BP AND SINUS BRADYCARDIA IN THE 30s. CALLED PHARMACY TO DELIVER LEVOPHED. PAGED MD. AWAITING TO CALL BACK. LEFT A MSG TO FAMILY.
--- NOTE | 2018-11-30 20:15 | NUR ---
REPLENISHMENT MERCHANDISING ASSOCIATE: ALSO NOTED WT DESATURATION IN THE 80s. FI02 INCREASED TO 100% AND OBTAINED ORDER FOR STAT ABG.
[2018-11-30] MEDS: NOREPINEPHRINE 16 MG in IV D5W 500 ML IV PRN (20:16)
--- NOTE | 2018-11-30 20:21 | NUR ---
COMPUTER TRAINER: MADE AWARE THAT FAMILY WANTED TO CHANGE CODE STATUS TO DNR/DNI AND AGREED.
[2018-11-30 20:24] LABS: ABG BASE EXCESS -12.2 mmol/L; ABG OXYGEN SATURATION 98.3 % (92.0-98.5); ABG PCO2 87.7 mmHg (35.0-45.0); ABG PH 6.982 (7.350-7.450); ABG PO2 209.2 mmHg (75.0-100.0); AaDO2 416.1 mmHg; COHb 0.8 % (0.5-1.5); MetHb 0.3 % (0.0-1.5); O2Hb 97.2 % (94.0-97.0); PEEP,BG 5 cm H2O; SITE, ABG Right Radial; VT, ABG 500 mL
--- NOTE | 2018-11-30 20:31 | NUR ---
RT NOTE ABG RESULTS RELAYED TO CHARGE NURSE ED AND RN JULIANA. AWAITING ORDERS. WILL CONTINUE TO MONITOR.
--- NOTE | 2018-11-30 20:45 | NUR ---
MEDIA PRODUCER: RELAYED ABG RESULTS TO DR. BRITT AND PT NOW DNR/DNI STATUS. WT NEW ORDERS FOR STAT LABS, CHANGE IV TO D5 1/2 NS WT 20MEQ KCL AT SAME RATE AND TO GIVE 2 AMPS OF BICARB. ALSO MADE HIM AWARE THAT LEVOPHED WAS RESTARTED. WILL CONTINUE TO MONITOR.
[2018-11-30] MEDS ORDERED: SODIUM BICARBONATE SYR 50 MEQ/50 ML DISP.SYRIN IV ONE (21:00)
[2018-11-30] MEDS ORDERED: Potassium Chloride 20 MEQ in IV D5/0.45 NACL 1,000 ML IV PRN (21:00)
--- NOTE | 2018-11-30 21:00 | NUR ---
MILITARY SOURCE OPERATIONS OFFICER: D5 1/2 NS WT 20 MEQ KCL AT 50ML/HR STARTED. LABS DRAWN BEFORE 2AMPS OF BICARB WERE GIVEN. FAMILY AT BEDSIDE.
[2018-11-30 21:05] LABS: BASOPHILS # (AUTO) 0.1 /CMM (0.0-0.2); BASOPHILS % (AUTO) 0.2 % (0.0-2.0); EOSINOPHILS % (AUTO) 0.2 % (0.0-6.0); HEMATOCRIT 32 % (39-51); HEMOGLOBIN 10.7 g/dL (13.5-17.5); LYMPHOCYTES # (AUTO) 1.3 /CMM (0.8-4.8); LYMPHOCYTES % (AUTO) 2.8 % (20.0-44.0); MEAN CORPUSCULAR HGB CONC 33 g/dl (31.0-36.0); MEAN CORPUSCULAR VOLUME 106 fL (80-96); MONOCYTES # (AUTO) 0.5 /CMM (0.1-1.30); NEUTROPHILS # (AUTO) 42.7 /CMM (1.8-8.9); NEUTROPHILS % (AUTO) 95.8 % (43.0-81.0); RED BLOOD CELL COUNT(AUTO) 3.07 MIL/uL (4.5-6.0)
[2018-11-30 21:17] LABS: CALCIUM, SERUM 8.4 mg/dL (8.5-10.1); CARBON DIOXIDE 24 mmol/L (21-32); CHLORIDE 119 mmol/L (98-107); CREATININE 2.1 mg/dL (0.6-1.3); GLUCOSE 182 mg/dL (74-106); MAGNESIUM 2.2 mg/dL (1.8-2.4); PHOSPHORUS 6.6 mg/dL (2.5-4.9); POTASSIUM 4.8 mmol/L (3.5-5.1); SODIUM SERUM 152 mmol/L (136-145); UREA NITROGEN, BLOOD 73 mg/dL (7-18)
[2018-11-30 21:30] LABS: PLATELET COUNT (AUTO) 46 /CMM (150-450); WHITE BLOOD COUNT (AUTO) 44.6 K/uL (4.3-11.0)
--- NOTE | 2018-11-30 21:45 | NUR ---
CLINICAL REHABILITATION SPECIALIST: RELAYED WBC=44.6 AND PLATELET=[address] BR[address]. ALSO MADE HIM AWARE THAT FAMILY DOES NOT WANT ANOTHER VASOPRESSOR AT THIS TIME. NOW ON LEVOPHED AT 25MCG/MIN. HAS NO NEW ORDER.
[2018-11-30 21:47] LABS: LYMPHOCYTES % (MANUAL) 4 % (16-48); MONOCYTES % (MANUAL) 5 % (0-11.0); NEUTROPHILS % (MANUAL) 91 (42-76)
[2018-11-30] MEDS: INSULIN GLARGINE, 100 UNIT/ML CARTRIDGE SQ SCH (22:02)
[2018-12-01] VITALS (48 sets, daily range): BP systolic 53–135; BP diastolic 29–62
--- NOTE | 2018-12-01 00:10 | NUR ---
FORECLOSURE FIELD INSPECTOR: LEVOPHED AT MAX. DOSE RATE OF 40MCG/MIN. WT EPISODES OF DESATURATION IN THE HIGH 80s TO LOW 90s SO FI02 MAINTAINED AT 100%. FAMILY WENT HOME WT INSTRUCTIONS ONCE MORE NOT TO GIVE ANOTHER VASOPRESSOR FOR BP SUPPORT. CONTINUE FRANK HUGGER FOR TEMP. 95.5. SB ON SQL SERVER DBA. ANURIC AT THIS TIME. WILL CONTINUE TO MONITOR.
[2018-12-01] MEDS ORDERED: NOREPINEPHRINE 4 MG/4 ML AMPUL IV ONE (03:28)
[2018-12-01] MEDS: NOREPINEPHRINE 16 MG in IV D5W 500 ML IV PRN ×2 (04:12→11:35)
[2018-12-01 05:04] LABS: BASOPHILS # (AUTO) 0.1 /CMM (0.0-0.2); BASOPHILS % (AUTO) 0.2 % (0.0-2.0); HEMATOCRIT 32 % (39-51); HEMOGLOBIN 10.4 g/dL (13.5-17.5); LYMPHOCYTES # (AUTO) 0.7 /CMM (0.8-4.8); MEAN CORPUSCULAR HGB CONC 32 g/dl (31.0-36.0); MEAN CORPUSCULAR VOLUME 107 fL (80-96); MONOCYTES # (AUTO) 0.2 /CMM (0.1-1.30); MONOCYTES % (AUTO) 0.6 % (2.0-12.0); NEUTROPHILS # (AUTO) 35.6 /CMM (1.8-8.9); NEUTROPHILS % (AUTO) 96.2 % (43.0-81.0); PLATELET COUNT (AUTO) 57 /CMM (150-450)
[2018-12-01 05:23] LABS: CARBON DIOXIDE 23 mmol/L (21-32); CHLORIDE 116 mmol/L (98-107); CREATININE 2.6 mg/dL (0.6-1.3); GLUCOSE 213 mg/dL (74-106); SODIUM SERUM 148 mmol/L (136-145); UREA NITROGEN, BLOOD 74 mg/dL (7-18)
[2018-12-01 05:27] LABS: ALANINE AMINOTRANSFERASE 68 U/L (12-78); ALBUMIN 1.7 g/dL (3.4-5.0); ALKALINE PHOSPHATASE 715 U/L (46-116); ASPARTATE AMINOTRANSFERASE 71 U/L (15-37); BILIRUBIN,TOTAL 0.3 mg/dL (0.2-1.0); MAGNESIUM 2.1 mg/dL (1.8-2.4); TOTAL PROTEIN, SERUM 5.4 g/dL (6.4-8.2)
--- NOTE | 2018-12-01 05:50 | NUR ---
INSURANCE BROKER: SEEN AND EXAMINED BY DR. BAEZ. UPDATED PT'S CONDITION, LATEST K LEVEL AND REMAINS ANURIC. AWAITING ORDERS.
[2018-12-01 06:16] LABS: LYMPHOCYTES % (MANUAL) 2 % (16-48); MONOCYTES % (MANUAL) 2 % (0-11.0); NEUTROPHILS % (MANUAL) 96 (42-76)
[2018-12-01 06:18] LABS: PHOSPHORUS 9.7 mg/dL (2.5-4.9)
--- NOTE | 2018-12-01 06:20 | NUR ---
DIVERSIFIED CROPS FARMER: RELAYED PHOSPHORUS LEVEL=9.[address] BAEZ AND SAID TO DEFER TO RENAL MD. REMAINS OBTUNDED/COMATOSE, ST ON INSURANCE VERIFICATION SPECIALIST WT HR IN LOW 100s, FRANK ISIDRAER TURNED OFF TEMP=99.1. STILL ON LEVOPHED AT 40MCG/MIN, IVF DC'D, 02 SAT 100% AT FI02 80%. CXR TAKEN, AWAITING RESULTS. WILL ENDORSE TO DAY SHIFT FOR CONTINUITY OF CARE.
--- NOTE | 2018-12-01 06:55 | NUR ---
TENANT RELATIONS COORDINATOR: PT IS AWAKE AT THIS TIME, OPENING AND CLOSING OF MOUTH. LETHARGIC, OPENS EYES WHEN CALLED BY NAME BUT UNABLE TO FOLLOW SIMPLE COMMANDS. CONTINUE ON BIPAP WT SETTINGS ORDERED. WILL CONTINUE TO MONITOR.
--- NOTE | 2018-12-01 07:30 | NUR ---
KNOCKDOWN MAN: pt.is DNR/DNI status, no second pressor by family decision, pt.is lethargic, can open eyes for seconds with short eyes contact by touch, weak, trace arms/legs activity, no grimacing, unable to follow commands, T 98.9, no SOB, O2sat. over 94%, RT is in room, awake re last ABG, decreased FiO2 to 60%, on Levophed 40 mcg/m now, SBP over 100, will titrate, no IVF now by , NPO status, low urine output over night by report
[2018-12-01] MEDS: INSULIN REGULAR, HUMAN 100 UNIT/ML 3 ML VIAL SQ PRN (07:53)
[2018-12-01] MEDS: BLOOD SUGAR DIAGNOSTIC 1 EACH STRIP IN SCH (07:53)
[2018-12-01] MEDS: ENSURE ENLIVE CHOC 237 ML CAN PO SCH ×3 (07:54→17:00)
--- NOTE | 2018-12-01 08:35 | NUR ---
INSTALLATION SPECIALIST: pt.family is in room, got detailed information re pt.current condition, over night events, VS, I/O, Levophed gtt, meds, orders, labs, POC, pt. MDs info. Radiology dep. called: R.lung is collapsed and let typesetting supervisor be aware, charge nurse updated
[2018-12-01] MEDS: LACTOBACILLUS RHAMNOSUS GG 1 EACH CAP.SPRINK PO SCH ×2 (09:00→17:00)
[2018-12-01] MEDS: ASPIRIN 81 MG TAB.CHEW PO SCH (09:00)
[2018-12-01] MEDS: PIOGLITAZONE HCL 15 MG TABLET PO SCH (09:00)
[2018-12-01] MEDS: PANTOPRAZOLE 40 MG TABLET.DR PO SCH (09:00)
--- NOTE | 2018-12-01 09:00 | NUR ---
INK JET OPERATOR: CN, called to regional tanker truck driver office to notify MD re CXR result, waiting regional tanker truck driver
--- NOTE | 2018-12-01 09:20 | NUR ---
AIRLINE SECURITY REPRESENTATIVE: called back, notified re CXR result, pt.history, current condition, VS, Levophed gtt, DNR/DNI status, Bipap setting, ordered: ABG now, resp.Tx with Mucomyst, Albuterol, suction pt., R.chest PT
--- NOTE | 2018-12-01 09:25 | NUR ---
LOGISTICS SERVICE REPRESENTATIVE: notified RT re orders
[2018-12-01] MEDS ORDERED: ALBUTEROL FS 2.5 MG/3 ML VIAL.NEB NEB PRN (09:30)
[2018-12-01 09:35] LABS: ABG BASE EXCESS -6.1 mmol/L; ABG OXYGEN SATURATION 92.8 % (92.0-98.5); ABG PCO2 44.2 mmHg (35.0-45.0); ABG PH 7.281 (7.350-7.450); ABG PO2 66.2 mmHg (75.0-100.0); COHb 0.5 % (0.5-1.5); MetHb 0.1 % (0.0-1.5); O2Hb 92.2 % (94.0-97.0); SITE, ABG Right Radial; VENT MODE, BG AVAPS 12 500 EPAP5 60%
--- NOTE | 2018-12-01 09:45 | NUR ---
CLERK OF COURT: is in room, updated with pt.VS, low urine out, Levophed gtt, labs, Phos, NPO, ISS, aware re CXR result, ABG, DNR/DNI status, spoke with pt.son re POC, prognosis, see new orders
[2018-12-01] MEDS: CEFTRIAXONE 2 G in IV D5W 100 ML IV SCH (09:48)
--- NOTE | 2018-12-01 10:10 | NUR ---
ASBESTOS SURVEYOR: is in room, notified re pt.history, current condition, ABG, VS, Levophed gtt, NPO, low urine out, abnormal/critical labs, changed FiO2 to 80%/RT is in room, spoke with family re Dx, prognosis, POC, pt.family is consider for possible comfortable care, denies chest PT, possible bronchoscopy, awake re R.lung collapse, continue monitoring, Levophed gtt, resp.Tx
--- NOTE | 2018-12-01 10:12 | NUR ---
GEOSPATIAL INFORMATION TECHNOLOGIST: said: d/c accuV, ISS
[2018-12-01] MEDS: ACETYLCYSTEINE 10% SOLN 400 MG/4 ML VIAL NEB SCH ×2 (10:21→13:00)
[2018-12-01] MEDS: Z GUARD REMEDY 2 OZ OINT TP SCH (11:38)
--- NOTE | 2018-12-01 11:45 | NUR ---
AIRCRAFT ENGINE MECHANIC: is in room, updated with pt.current condition, neurostatus, VS, Levophed gtt, ABG, I/O, NPO, d/caitlyn ISS, O2sat., labs, orders, meds, spoke with , pt.family with details for prognosis, Dx, POC, ordered IVF, new Atbx, see new orders, for worse prognosis if no changes with neurostatus, R.lung, infection problem, IV pressor family considers agree for comfortable care
[2018-12-01] MEDS ORDERED: IV 1/2NS 1000 ML 1,000 ML IV PRN (12:30)
--- NOTE | 2018-12-01 13:00 | NUR ---
RT MED NOTE PT RECEIVED FIRST DOSE OF MUCOMYST AT 1021.
--- NOTE | 2018-12-01 13:30 | NUR ---
MOVABLE BULKHEAD INSTALLER: pt.is comatose, can open eyes for seconds with pain stimuli, rest, no grimacing on Bipap: no laboring, no SOB, O2sat. over 96%, SR, SBP over 95, continue titrate Levophed gtt, updated
[2018-12-01] MEDS ORDERED: PIPERACILLIN /TAZOBACTAM 2.25 G in IV D5W 50 ML IV SCH (14:00)
--- NOTE | 2018-12-01 15:00 | NUR ---
PERPETUAL INVENTORY CLERK: pt. began lani 50s, BP 53/29, rest, no SOB, no grimacing, no laboring, no evidences of discomfort, increased Levophed to max, pt.family is at BS, agree for all above
--- NOTE | 2018-12-01 17:16 | NUR ---
FALL INTERN: called to pharmacy to get Levophed bags for night
--- NOTE | 2018-12-01 17:45 | NUR ---
BEAUTY CONSULTANT: lani 40-50, max of Levophed gtt, SBP around 80, O2sat.90-92%, pt: no SOB, no laboring, no grimacing, no Sz, pt. and son are agree to continue Bipap, no Pain meds necessary for now
--- NOTE | 2018-12-01 18:20 | NUR ---
DISTRIBUTION LEAD NOTE PT DNR STATUS ON BIPAP. NOTED PT ASYSTOLIC, APNEIC. PUPILS FIXED AND DILATED. AT 1820. FAMILY AT BEDSIDE. DR BRITT NOTIFIED.
== END 2018-12-01 18:20 | disposition expired | DRG 871 ==
LOC: ER 00:36 → ICU 02:45
PROVIDERS: ADMIT Internal Medicine; ATTEND Internal Medicine
PROC: 5A09457 Assistance with Respiratory Ventilation, 24-96 Consecutive Hours, Continuous Positive Airway Pressure (ICD-10-PCS; principal; 2018-11-25)
PROC: 02HV33Z Insertion of Infusion Device into Superior Vena Cava, Percutaneous Approach (ICD-10-PCS; 2018-11-25)
PROC: B548ZZA Ultrasonography of Superior Vena Cava, Guidance (ICD-10-PCS; 2018-11-25)
PROC: 5A09457 Assistance with Respiratory Ventilation, 24-96 Consecutive Hours, Continuous Positive Airway Pressure (ICD-10-PCS; 2018-11-30)
DX: A41.51 Sepsis due to Escherichia coli [E. coli] (principal); I21.A1 Myocardial infarction type 2; R65.21 Severe sepsis with septic shock; J96.01 Acute respiratory failure with hypoxia; N17.0 Acute kidney failure with tubular necrosis; I50.33 Acute on chronic diastolic (congestive) heart failure; Z51.5 Encounter for palliative care; J69.0 Pneumonitis due to inhalation of food and vomit; J96.02 Acute respiratory failure with hypercapnia; G92 Toxic encephalopathy; J15.9 Unspecified bacterial pneumonia; I13.0 Hypertensive heart and chronic kidney disease with heart failure and stage 1 through stage 4 chronic kidney disease, or unspecified chronic kidney disease; E87.2 Acidosis; E46 Unspecified protein-calorie malnutrition; N39.0 Urinary tract infection, site not specified; J98.19 Other pulmonary collapse; I48.91 Unspecified atrial fibrillation; E86.0 Dehydration; D53.9 Nutritional anemia, unspecified; E11.22 Type 2 diabetes mellitus with diabetic chronic kidney disease; E55.9 Vitamin D deficiency, unspecified; E83.39 Other disorders of phosphorus metabolism; N18.9 Chronic kidney disease, unspecified; Z92.3 Personal history of irradiation; Z85.46 Personal history of malignant neoplasm of prostate; Z66 Do not resuscitate; I25.10 Atherosclerotic heart disease of native coronary artery without angina pectoris; E87.5 Hyperkalemia; I50.9 Heart failure, unspecified; F03.90 Unspecified dementia, unspecified severity, without behavioral disturbance, psychotic disturbance, mood disturbance, and anxiety; N28.1 Cyst of kidney, acquired; F09 Unspecified mental disorder due to known physiological condition; B96.20 Unspecified Escherichia coli [E. coli] as the cause of diseases classified elsewhere; Z68.25 Body mass index [BMI] 25.0-25.9, adult; Z79.84 Long term (current) use of oral hypoglycemic drugs; D69.59 Other secondary thrombocytopenia; Z79.82 Long term (current) use of aspirin
CPT/HCPCS: 36415; 36600; 70450-TC; 71045-TC; 76770-TC; 80048-TC; 80053-TC; 80061-TC; 80076-TC; 80202-TC; 81000-TC; 82248-TC; 82533; 82570-TC; 82803-TC; 82962-TC; 83605-TC; 83735-TC; 83880; 84100-TC; 84300-TC; 84484-TC; 85025-TC; 85396; 85730-TC; 87040-TC; 87081-TC; 87086-TC; 87186-TC; 87400; 92526; 92611-TC; 93307-TC; 94660; 94799-TC; 99082-TC; A4216; C1751; C9113; G0378; J0456; J0696; J1644; J1720; J1815; J1940; J2185; J2370; J2543; J3370; J3475; J3480; J3490; J7030; J7040; J7042; J7050; J7060